=== PATIENT | male | born 1950 | race Caucasian/White ===

== ENCOUNTER 2024-12-28 10:43 | Emergency (ER) | payer OTHER, SELFPAY ==
[2024-12-28 10:45] VITALS: BP 139/71; PULSE 66; RESP 16; TEMP 36.6; O2SAT 95
--- NOTE | 2024-12-28 11:00 | DI.RAD_ITS ---
Exam(s) XR HIP RT COMPLETE AP PELVIS EXAM: XR HIP RT COMPLETE AP PELVIS CLINICAL HISTORY: pain with external rotation, R. SI pain. TECHNIQUE: 2D digital imaging was performed. Two views COMPARISON: No exams were available for comparison FINDINGS: BONES: No acute fracture is present. No bony destructive lesion is seen. Enthesophytes at the iliac wings. JOINTS: No dislocation present. Moderate narrowing of the right hip joint space. Bilateral acetabular spurring, right greater than left. Spurring from the margin of the right femoral head. SOFT TISSUE: Normal vascular calcifications. IMPRESSION: Degenerative changes. No acute abnormality. The preliminary [facility] report was reviewed. DATA REPOSITORY: RADIATION DOSE DELIVERED:
[2024-12-28] MEDS: Acetaminophen 500 MG TAB 1000 MG PO (11:11)
[2024-12-28] MEDS: Lidocaine 5% Patch 1 PATCH TP ×2 (11:12→13:35)
--- NOTE | 2024-12-28 12:00 | ED.GENADUL_ITS ---
Discharge Plan Disposition Patient Disposition: Home Condition: Stable Discharge Details Clinical Impression: Low back pain, Degenerative joint disease of right hip, Asymptomatic microscopic hematuria Primary Care Provider: Unknown,Unknown ED Provider: Roseline Ford Recommendations for Follow Up Recommended tests to be ordered by follow up provider: follow-up UA in 2-3 weeks for trace hematuria Discharge Instructions Instructions: Low Back Pain (DC) Additional Instructions: You were seen in the emergency department today for evaluation of right sided lower back pain and hip pain. In our department you do full physical examination performed, had an x-ray of your hip that shows some [id number] changes known as degenerative arthritis. I am most concerned for a muscular strain or sprain, and recommend that you avoid heavy lifting or significant physical exertion for the next 2 days to allow your body to heal. Please utilize lidocaine patches in the area of maximum pain. You can also use a heat pack or warm bath to relax the muscles. Please use therapeutic dosing of Tylenol (acetaminophen) & Advil (ibuprofen) in an alternating fashion as follows: Take 1000mg of Tylenol every 6 hours without missing doses- that is 4 times per day. [place] in between the Tylenol doses, take 600mg of Advil also on a 6 hour schedule, that is also 4 times per day. With this strategy, you will be taking something for fever/pain as often as every 3 hours. The daily maximum dosing of Tylenol is 4000mg, and the daily maximum dosing of Advil is 2400mg. Please note that some common cold medications & prescription pain medications may contain acetaminophen and you need to read OTC drug labels and factor that in to maximum daily doses. Please have your primary care provider follow-up on the small amount of microscopic blood noted in your urinalysis. I will place a referral to physical therapy for you to reestablish with their care, and please follow-up with your primary care provider in the next few days to discuss this visit and any symptoms that change, worsen, or persist. Thank you for allowing us to be part of your care. HPI General Mode of arrival: ambulatory . Date/Time Provider Initiated Documentation: 12/28/24 10:46 . Limitations to Documentation: no limitations . Information obtained by: patient, family and old records reviewed . HPI Narrative: This is a 74-year-old male patient without significant past medical history presenting for evaluation of right lower back pain. The patient reports that he was doing a yoga exercise about a week and a half ago and felt some pain during one of the stretches. Since then he has not reduced his physical activity, and has noted gradually worsening pain. He did trial ibuprofen yesterday and today without significant improvement. The patient reports that the pain does not radiate, he has not experienced any numbness, tingling, or weakness of his lower extremities. Specifically denies saddle anesthesia. No bowel or bladder incontinence or retention, and the patient has not experienced any fever or chills, unintentional weight loss, abdominal or chest pain. He has been able to ambulate though that does make this pain worse. Related Data Allergies Allergy/AdvReac Type Severity Reaction Status Date / Time No Known Allergies Allergy Verified 12/28/24 10:49 General Stated Complaint: Nk/Back Pain KEILA: 3 Exam Narrative Exam Narrative: Gen: Awake and alert, in no apparent distress HEENT: Non-icteric sclera Neck: Supple Lungs: No apparent respiratory distress, normal respiratory effort. CV: Appears well perfused Abdomen: Non-distended, soft, nontender to palpation, no pulsatile midline masses MSK: Moves 4 extremities without apparent limitation in ROM. The patient has no tenderness to palpation of the midline spine of the back, no overlying skin changes. Tenderness to palpation along the right lower back in the area of the SI joint over to the lateral aspect of the hip. Pelvis is stable to AP compression without instability or tenderness, though the patient does have reproduction of tenderness with external rotation of the right hip. Straight leg raise is negative bilaterally. No CVA tenderness Skin: Visualized skin without rashes, cyanosis. Neuro: Normal Gait, no obvious focal deficits or facial asymmetry. 5 out of 5 strength x 2 lower extremities, no sensory deficits. Speaks in full, clear sentences. Psych: Appropriate for situation. Course Vital Signs Vital signs: Vital Signs Temperature 36.6 C 12/28/24 10:45 Pulse 66 12/28/24 10:45 Respiratory Rate 16 12/28/24 10:45 Blood Pressure 139/71 12/28/24 10:45 Pulse Oximetry 95 12/28/24 10:45 Temperature 36.6 C 12/28/24 10:45 Temperature Source Oral 12/28/24 10:45 Pulse 66 12/28/24 10:45 Respiratory Rate 16 12/28/24 10:45 Blood Pressure 139/71 12/28/24 10:45 Blood Pressure Position Sitting 12/28/24 10:45 Pulse Oximetry 95 12/28/24 10:45 Oxygen Delivery Method Room Air 12/28/24 10:45 Oxygen Flow Rate 0 12/28/24 10:45 Pain Level 6 12/28/24 11:11 Medical Decision Making This is a 74-year-old male patient present for evaluation of right-sided low back and hip pain. My differential includes but is not limited to muscular strain or spasm, sprain, no mechanism of injury to significantly increase my concern for fracture, dislocation. The patient has no abdominal tenderness or history of aortic pathology to suggest AAA. He is not experiencing any urinary symptoms to significantly increase my concern for urinary tract infection, renal stone. The patient has no neurodeficits nor red flags on my history or exam to suggest spinal cord compression syndrome such as cauda equina, spinal epidural abscess or hematoma, transverse myelitis. We will provide the patient with Tylenol and a Lidoderm patch, and obtain x-ray imaging of the affected right hip. A urinalysis will be obtained. -The x-ray reveals degenerative changes of the right hip, patient reports significant improvement in his symptoms after Tylenol and was able to ambulate. The patient's urinalysis is noninfectious, he does have trace microscopic hematuria. The x-ray imaging did not reveal any UVJ stones, and this patient's history and reexamination are quite concerning for a musculoskeletal etiology. I did recommend that his primary care provider recheck his urine to evaluate for ongoing hematuria or other changes. I provided the patient with a referral to establish with a physical therapist, and I recommended conservative management with Tylenol, ibuprofen, and Lidoderm. At this time, the patient has had a full medical evaluation and is safe for discharge to home. They are hemodynamically stable, ambulatory, and tolerating PO. They are understanding of the follow-up plan and return precautions. They left our facility without incident. Roseline Ford MD [facility] All Active Problems (Updated 12/28/24 @ 14:11 by Roseline Ford MD) Asymptomatic microscopic hematuria (Acute) Degenerative joint disease of right hip (Acute) Low back pain (Acute) Social History Smoking/Tobacco Use Status: Current-Occasional Smoking risk assessment performed?: Yes Alcohol Intake: former Drug use: Daily Substance use type: marijuana
--- NOTE | 2024-12-28 13:23 | DI.[facility]_ITS ---
PROCEDURE INFORMATION: Exam: XR Right Hip Exam date and time: 12/28/2024 11:43 AM Age: 74 years old Clinical indication: Other: Pain with external rotation, R. Si pain TECHNIQUE: Imaging protocol: Radiologic exam of the right hip. Views: 2 or 3 views hip with pelvis when performed. COMPARISON: No relevant prior studies available. FINDINGS: Bones/joints: Degenerative changes in the right hip and pubic symphysis. Mild enthesopathy at the iliac crests. No acute fracture. Sacroiliac joints are grossly preserved Soft tissues: Vascular calcifications. IMPRESSION: No acute findings. Dictated and Authenticated by: Mukesh Wahl MD. [facility]in [facility] MD
[2024-12-28 13:49] LABS: Glucose Negative (Negative)
[2024-12-28 13:58] LABS: WBC Negative HPF (0-5)
[2024-12-28 13:59] LABS: C & S Indicated? No
[2024-12-28 14:19] VITALS: BP 144/77; PULSE 61; RESP 14; TEMP 36.8; O2SAT 99
== END 2024-12-28 14:20 | disposition home or self-care (01) ==
LOC: ER 14:02
PROVIDERS: Emergency Provider Emergency Medicine
DX: M54.50 Low back pain, unspecified (principal); M16.11 Unilateral primary osteoarthritis, right hip; R31.21 Asymptomatic microscopic hematuria; F17.200 Nicotine dependence, unspecified, uncomplicated
CPT/HCPCS: 99283; 73502; 81003; 81015